=== PATIENT | female | born 1995 | race Caucasian/White ===

== ENCOUNTER → 2019-06-06 07:52 | Outpatient (CLI) | payer BC, SELFPAY ==
--- NOTE | 2019-06-06 15:05 | NEURO ---
NCS and/or EMG Patient Report Ordering Doctor: Pat Flores DATE OF SERVICE: 06/06/19 Kerline Camejo is a 24-year-old female presents for electrodiagnostic testing of the upper limbs. She reports numbness and tingling in both hands. Electrodiagnostic findings: Median motor nerve demonstrates normal distal latency, amplitude and conduction velocity bilaterally. Normal ulnar motor response bilaterally, including conduction across the elbow. Normal median and ulnar F waves. Prolonged right median sensory latency at the wrist is noted. Normal left-sided sensory responses. Normal right ulnar and radial sensory responses. Needle EMG testing demonstrates that all muscles tested in the upper limbs showed no evidence of denervation with normal motor unit action potentials. Electrodiagnostic impression: This is an abnormal study. 1. Electrodiagnostic findings demonstrate right-sided median mononeuropathy. This is consistent with a mild right carpal tunnel syndrome. 2. No electrodiagnostic evidence for ulnar neuropathy. If there are any further questions, please do not hesitate to contact me
== END ==
PROVIDERS: Family Provider Family Medicine; PCP Family Medicine; Referring Provider Family Medicine; Visit Provider Family Medicine
DX: R20.2 Paresthesia of skin (principal)
CPT/HCPCS: 95886; 95913

== ENCOUNTER 2019-08-09 11:19 | Day surgery (SDC) | payer BC, SELFPAY ==
[2019-08-09 11:52] VITALS: BP 118/69; PULSE 80; RESP 15; TEMP 36.6; O2SAT 100; BMI 31.7
[2019-08-09 12:01] LABS: Internal QC Validated? YES +Cl - CLEAR BKGD; Pregnancy, Urine Negative Negative
[2019-08-09] MEDS: Lactated Ringers 1,000 ML 100 ML IV (12:08)
[2019-08-09] MEDS: Cefazolin 2 GM in 0.9% Normal Saline 100 ML IV (12:45)
--- NOTE | 2019-08-09 13:22 | PCM.OPRPT ---
Report of Operation Date of Procedure: 08/09/19 Pre-Operative Diagnosis: Right carpal tunnel syndrome Post-Operative Diagnosis: same Surgery/Procedure Performed:: Right carpal tunnel release Type of Anesthesia:: Ada Blair Anesthesiologist: Shant Tan Estimated Blood Loss (mL): 5 cc - Admit VTE Documentation VTE Present on Admission: No VTE Mechan Device Prophylaxis: SCD's VTE Pharm Prophylaxis ordered?: No Reason prophylaxis not ordered:: Treatment Not Indicated
[2019-08-09 13:23] VITALS: BP 118/69; BP 90/76; PULSE 86; RESP 16; TEMP 36.4; O2SAT 97
[2019-08-09 13:30] VITALS: BP 102/71; BP 118/69; PULSE 91; RESP 16; O2SAT 98
[2019-08-09 13:35] VITALS: BP 112/72; BP 118/69; PULSE 87; RESP 16; O2SAT 98
[2019-08-09 13:41] VITALS: BP 118/69; BP 95/63; PULSE 88; RESP 16; TEMP 36.7; O2SAT 98
[2019-08-09] MEDS: HYDROcodone Bitartrate/Apap 5/325 Tablet PO (14:10)
[2019-08-09 14:14] VITALS: BP 118/69
== END 2019-08-09 14:54 | disposition home or self-care (01) ==
LOC: SDC 11:20 → AC 11:22
PROVIDERS: Anesthesiology; Family Provider Family Medicine; PCP Family Medicine; Referring Provider Orthopaedic Surgery; Visit Provider Orthopaedic Surgery
PROC: (CPT 64721; principal; 2019-08-09 12:45)
DX: G56.01 Carpal tunnel syndrome, right upper limb (principal); Z87.891 Personal history of nicotine dependence
CPT/HCPCS: 64721; 81025; J7120

== ENCOUNTER 2020-12-16 10:54 | Emergency (ER) | payer OTHER, SELFPAY ==
[2020-12-16 10:54] VITALS: BP 111/72; PULSE 87; RESP 18; TEMP 36.3; O2SAT 97; BMI 26.9
--- NOTE | 2020-12-16 11:05 | EDS_ITS ---
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 open contacting her skin, she immediately applied wound care measures with burn gel she was brought to the emergency department she has no significant past history she reports tetanus is up-to-date no other complaints denies PFSH PFSH Home Medications fluoxetine 20 mg PO QHS 12/16/20 [History Last Taken Unknown] Allergy/AdvReac Type Severity Reaction Status Date / Time No Known Allergies Allergy Verified 12/16/20 10:57 Social History Smoking Status: Current some day smoker ROS ROS ED Constitutional Constitutional ED: Reports subjective, sweats and other; Denies chills, fever(s) or weight loss Eyes Eyes: Denies blurry vision or change in vision ENT ENT ED: Denies ear pain Cardiovascular Cardiovascular: Denies chest pain or palpitations Respiratory/Chest Respiratory/Chest: Denies dyspnea Gastrointestinal Gastrointestinal: Denies abdominal pain, nausea or vomiting Genitourinary Genitourinary ED: Denies dysuria or hematuria Musculoskeletal Musculoskeletal: Denies arthralgias or myalgias Integumentary Reports rash; Denies abscess Neurologic Neurologic: Denies weakness Psychiatric Psychiatric: Denies anxiety or depression Endocrine Endocrinology: Denies polydipsia or polyuria Allergic/Immunologic Allergic/Immunologic ED: Denies urticaria EXAM Physical Exam Const Vital Signs: 12/16/20 10:54 Temperature 97.4 F L Temperature Source Temporal Pulse Rate 87 Respiratory Rate 18 Blood Pressure 111/72 Blood Pressure Mean 85 Pulse Ox 97 Oxygen Delivery Method Room Air Positive well developed General Appearance ED: well developed HEENT Reports normocephalic Negative for trauma Eyes EOMs intact bilaterally Neck supple Chest Wall inspection of chest normal Resp normal respiratory effort Cardio regular rate GI non-tender and non-distended Back/Spine Back/Spine Narrative: unremarkable Extremity normal to inspection Extremity Narrative: There is a linear 3 x 6 cm area of burn to the lateral r ight elbow area, elbow has full range of motion there is no signs of blistering neurovascular function normal no other injury or complaints this was a hot oven door that struck her right to the specific area Neuro oriented x3 and CN's II-XII intact bilaterally Sensorium / Orientation: alert Psych mental status grossly normal Skin no rashes or lesions noted MDM MDM MDM Narrative Medical decision making narrative: Discussed burn management with the patient pain management, she does not wish to take narcotic she will be given nonsteroidals wound care here her tetanus is up-to-date she wants to go back to work she will fill out the Worker's Comp. form provide her instructions on wound care and she will follow-up with outpatient providers please note the elbow joint function is completely normal as this injury is lateral Disposition Home Final impression partial-thickness burn to right lateral elbow area Discharge Plan Triage Chief Complaint: Burn ED Provider: Daisy Armstrong Dx/Rx/DC Orders Clinical Impression: Burn Instructions: ED BURN Wound Check [No Infection] Prescriptions: No Action fluoxetine 20 mg Capsule 20 mg PO QHS RF: 0 Primary Care Provider: Pat Flores Referrals: Pat Flores MD [Primary Care Provider] -
[2020-12-16] MEDS: Naproxen 250 MG Tablet 500 MG PO (11:23)
== END 2020-12-16 12:21 | disposition home or self-care (01) ==
PROVIDERS: Emergency Provider Emergency Medicine; PCP Family Medicine
DX: T22.021A Burn of unspecified degree of right elbow, initial encounter (principal); W29.2XXA Contact with other powered household machinery, initial encounter; Y93.89 Activity, other specified; Y99.0 Civilian activity done for income or pay; F17.200 Nicotine dependence, unspecified, uncomplicated; Z79.899 Other long term (current) drug therapy; Y92.238 Other place in hospital as the place of occurrence of the external cause
CPT/HCPCS: 99283

== ENCOUNTER 2021-02-28 14:11 | Emergency (ER) | payer OTHER, SELFPAY ==
[2021-02-28 14:12] VITALS: BP 129/74; PULSE 105; RESP 14; TEMP 36.2; O2SAT 98; BMI 25.0
--- NOTE | 2021-02-28 14:26 | EX.ED.DYSGE1 ---
HPI History of Present Illness Chief Complaint: Rash Informant: patient Narrative Narrative: 25-year-old female presenting to the emergency department with rash. Patient states 2 weeks ago she had poison erika. Her symptoms got better but her significant other works with trees and came home and gave her a hug. She states that yesterday she began to have a rash on her face and neck and subsequently has now spread to torso and legs. No history of diabetes. PFSH PFSH Home Medications fluoxetine 20 mg PO QHS 12/16/20 [History Last Taken Unknown] prednisone See Rx Instructions .ROUTE .COMPLEX #24 tablet 02/28/21 [Rx Last Taken Unknown] Allergy/AdvReac Type Severity Reaction Status Date / Time No Known Allergies Allergy Verified 02/28/21 14:13 Social History (Updated 02/28/21 @ 14:[address] Evin Mercedes, DO) Smoking Status: Current some day smoker substance use type: does not use ROS ROS ED Constitutional Constitutional ED: Denies chills or weight loss Eyes Eyes: Denies change in vision or diplopia ENT ENT ED: Denies ear pain, rhinorrhea or sore throat Cardiovascular Cardiovascular: Denies chest pain, orthopnea, palpitations or racing heartbeat Respiratory/Chest Respiratory/Chest: Denies cough, dyspnea or orthopnea Gastrointestinal Gastrointestinal: Denies abdominal pain, diarrhea, nausea or vomiting Genitourinary Genitourinary ED: Denies dysuria, hematuria or urinary frequency Musculoskeletal Musculoskeletal: Denies arthralgias or myalgias Integumentary Reports rash; Denies abscess Neurologic Neurologic: Denies headache(s) or weakness Psychiatric Psychiatric: Denies anxiety, depression, suicidal ideation or suicidal thoughts Endocrine Endocrinology: Denies polydipsia, polyphagia or polyuria Allergic/Immunologic Allergic/Immunologic ED: Denies mouth swelling, tongue swelling or urticaria EXAM Physical Exam Const Vital Signs: 02/28/21 14:12 Temperature 97.1 F L Temperature Source Temporal Pulse Rate 105 H Respiratory Rate 14 Blood Pressure 129/74 H Blood Pressure Mean 92 Pulse Ox 98 Oxygen Delivery Method Room Air Positive well nourished and well developed General Appearance ED: well developed HEENT Reports normocephalic, head/scalp atraumatic and moist mucous membranes Eyes PERRL and EOMs intact bilaterally Neck no lymphadenopathy, supple and no JVD Resp normal respiratory effort and clear to auscultation bilaterally Cardio regular rate, regular rhythm and no murmurs GI normal to inspection, nondistended, normoactive bowel sounds and non-tender Palpation: soft Back/Spine no CVA tenderness and normal ROM Extremity normal to inspection General Extremety ED: Negative for edema General Extremity: Negative for edema Neuro oriented x3 and CN's II-XII intact bilaterally Sensorium / Orientation: alert Motor Exam: strength 5/5 throughout Psych mental status grossly normal Mood & Affect: Negative for depressed or tearful Skin no wounds Skin Narrative: Patient has rash on face neck torso and legs consistent with rhus dermatitis. MDM MDM MDM Narrative Medical decision making narrative: Patient will be given a dose of Kenalog and started on a 12-day tapering dose of prednisone. Return if worsening or concerns Discharge Plan Triage Chief Complaint: Rash ED Provider: Evin Mercedes Dx/Rx/DC Orders Clinical Impression: Allergic dermatitis due to poison erika Instructions: ED Poison Erika Rash Prescriptions: New prednisone 20 MG tablet See Rx Instructions .ROUTE .COMPLEX Qty: 24 RF: 0 No Action fluoxetine 20 mg Capsule 20 mg PO QHS RF: 0 Primary Care Provider: Pat Flores Referrals: Pat Flores MD [Primary Care Provider] - As Needed Disposition Disposition: Home, Self Care
[2021-02-28] MEDS: Triamcinolone Acetonide 40 MG/ML Vial IM (14:38)
[2021-02-28 14:43] VITALS: PULSE 98; RESP 16; O2SAT 98
== END 2021-02-28 14:55 | disposition home or self-care (01) ==
LOC: ED 14:30
PROVIDERS: Emergency Provider Emergency Medicine; PCP Family Medicine
DX: L23.7 Allergic contact dermatitis due to plants, except food (principal); F17.200 Nicotine dependence, unspecified, uncomplicated; Z79.52 Long term (current) use of systemic steroids
CPT/HCPCS: 96372; 99282

== ENCOUNTER → 2021-03-12 10:19 | Outpatient (CLI) | payer OTHER, SELFPAY ==
[2021-02-28 14:12] VITALS: BMI 25.0
== END ==
PROVIDERS: PCP Family Medicine; Visit Provider Nurse Practitioner Family
DX: N39.0 Urinary tract infection, site not specified (principal)
CPT/HCPCS: 87086; 87088; 87186

== ENCOUNTER → 2021-05-15 12:09 | Outpatient (CLI) | payer OTHER, SELFPAY ==
[2021-05-19 09:08] LABS: Chlamydia By Nucleic Acid AMP Negative (Negative)
[2021-05-19 17:03] LABS: Gonococcus By Nucleic Acid AMP Negative (Negative)
[2021-05-19 17:04] LABS: HPV Reflexed? NOT INDICATED
== END ==
PROVIDERS: PCP Family Medicine; Referring Provider Family Medicine; Visit Provider Family Medicine
DX: Z12.4 Encounter for screening for malignant neoplasm of cervix (principal)
CPT/HCPCS: 87491; 87591; 88142

== ENCOUNTER → 2022-01-19 | Outpatient (CLI) | payer OTHER, SELFPAY ==
--- NOTE | 2022-01-19 11:46 | RAD_ITS ---
STUDY: X-RAY - SKULL REASON FOR EXAM: Female, 26 years old. Craniotabes. TECHNIQUE: 5 view(s) of the skull were obtained. COMPARISON: None. FINDINGS: There is no demonstrated soft tissue swelling. Normal osseous calvarium. Normal visualized facial bones. Normal visualized paranasal sinuses. RAD/Skull less than 4 Views IMPRESSION: Normal x-ray examination of the skull. Electronically Signed: Barry English MD at 9:46 EDT ,
== END | disposition home or self-care (01) ==
LOC: MTRAD 11:45
PROVIDERS: PCP Family Medicine; Referring Provider Family Medicine; Visit Provider Family Medicine
DX: M83.8 Other adult osteomalacia (principal)
CPT/HCPCS: 70250

== ENCOUNTER → 2023-03-04 | Outpatient (CLI) | payer OTHER, SELFPAY ==
[2023-03-04 12:08] LABS: AST(SGOT) 17 U/L (15-37); Alanine Aminotransfer ALT/SGPT 21 U/L (13-56); Cholesterol 179 mg/dL (200); High Density Lipoprotein 53 mg/dL; Triglycerides 46 mg/dL; Very Low Density Lipoprotein 9 mg/dL (5-40)
== END | disposition home or self-care (01) ==
LOC: LAB 10:21
PROVIDERS: PCP Family Medicine; Referring Provider Family Medicine; Visit Provider Family Medicine
DX: E78.00 Pure hypercholesterolemia, unspecified (principal)
CPT/HCPCS: 36415; 80061; 84450; 84460

== ENCOUNTER → 2023-12-22 | Outpatient (CLI) | payer OTHER, SELFPAY ==
[2023-12-22 15:28] LABS: Absolute Lymphocyte Count 0.64 X10^3/uL (0.83-4.51); Absolute Neutrophil Count 15.7 X10^3/uL (2.0-7.7); Basophil# 0.16 X10^3/uL; Basophil% 0.9 % (0-1); Eosinophil# 0.01 X10^3/uL; Eosinophils% 0.1 % (0-5); Hematocrit 36.3 % (37-47); Hemoglobin 11.9 g/dL (12.0-15.0); Lymphocyte # 0.64 X10^3/ul (0.83-4.51); Lymphocyte % 3.6 % (19-41); Mean Corp Hgb Conc 32.8 g/dL (32-36); Mean Corpuscular Hgb 30.4 pg (27.0-32.0); Mean Corpuscular Volume 92.6 fL (81-99); Mean Platelet Vol. 10.3 fl (6.2-12.0); Monocyte# 1.23 X10^3/uL; Monocyte% 6.8 % (0-10); NRBC Flagged by Analyzer 0 % (0-5); Neutrophil # 15.74 X10^3/uL (2.7-7.7); Neutrophil % 87.5 % (47-70); POSITIVE MORPHOLOGY YES; Platelet Count 202 K/mm3 (150-450); Red Blood Count 3.92 M/mm3 (4.2-5.4)
[2023-12-22 15:40] LABS: Differential Indicated SCAN CRITERIA MET
[2023-12-22 16:07] LABS: Anion Gap 6 (5-15); BUN 13 mg/dL (7-18); BUN/Creat Ratio 14.7 RATIO (10-20); Calcium,Total 9.3 mg/dL (8.5-10.1); Chloride 101 mmol/L (98-107); Creatinine, Serum 0.89 mg/dL (0.55-1.02); EST Glomerular Filtration Rate 80 mL/min (>60); Est Glom Filt Rate - Afr Amer 97 mL/min (>60); Glucose 95 mg/dL (74-106); Potassium 4.2 mmol/L (3.5-5.1); Sodium Level 133 mmol/L (136-145)
[2023-12-22 16:14] LABS: Anisocytosis RARE; Macrocytosis RARE; Platelet Estimate ADEQUATE (ADEQ); Red Cell Morphology N CHROM NORMAL (NORM C&C)
== END | disposition home or self-care (01) ==
LOC: MFPLAB 12:21
PROVIDERS: PCP Family Medicine; Visit Provider Family Medicine
DX: R53.83 Other fatigue (principal)
CPT/HCPCS: 36415; 80048; 85025

== ENCOUNTER 2024-10-05 16:21 | Outpatient (CLI) | payer BC, SELFPAY ==
[2024-10-05 18:28] LABS: Estradiol 27.5 pg/mL
[2024-10-05 18:29] LABS: ALB/GLOB Ratio 1.3 RATIO (0.9-2.4); AST(SGOT) 23 U/L (<=31); Alanine Aminotransfer ALT/SGPT 16 U/L (<=34); Albumin, Serum 4.4 g/dL (3.5-5.0); Alkaline Phosphatase 70 U/L (35-104); Anion Gap 12 (5-15); BUN 15 mg/dL (4-19); BUN/Creat Ratio 24.3 RATIO (10-20); Calcium,Total 9.5 mg/dL (7.6-11.0); Carbon Dioxide 24.4 mmol/L (21.0-32.0); Chloride 103 mmol/L (98-108); EST Glomerular Filtration Rate 124 (>60); Globulin 3.4 g/dL (2.2-4.2); Glucose 75 mg/dL (70-99); Potassium 3.9 mmol/L (3.3-5.1); Protein, Total 7.8 g/dL (5.9-8.4); Sodium Level 139 mmol/L (133-145); Total Bilirubin 0.21 mg/dL (0.00-1.30)
[2024-10-05 18:36] LABS: Internal QC Validated? YES +Cl - CLEAR BKGD; Pregnancy, Serum, hCG Quali. NEGATIVE Negative
[2024-10-07 09:08] LABS: PROGESTERONE 0.2 ng/mL (.)
[2024-10-07 14:08] LABS: Adrenocorticotropic Hormone 14.5 pg/mL (7.2-63.3)
== END 2024-10-05 23:59 | disposition home or self-care (01) ==
LOC: MFPLAB 16:25
PROVIDERS: PCP Family Medicine; Referring Provider Family Medicine; Visit Provider Family Medicine
DX: Z00.00 Encounter for general adult medical examination without abnormal findings (principal)
CPT/HCPCS: 36415; 80053; 82024; 82627; 82670; 84144; 84443; 84703; 82626

== ENCOUNTER → 2024-10-05 | Outpatient (CLI) | payer BC, SELFPAY ==
[2024-10-15 12:08] LABS: Chlamydia By Nucleic Acid AMP Negative (Negative); Gonococcus By Nucleic Acid AMP Negative (Negative); Trich. Vag By Nucleic Acid AMP Negative (Negative)
[2024-10-16 08:48] LABS: HPV Reflexed? NOT INDICATED
== END | disposition home or self-care (01) ==
PROVIDERS: PCP Family Medicine; Referring Provider Family Medicine; Visit Provider Family Medicine
DX: Z12.4 Encounter for screening for malignant neoplasm of cervix (principal)
CPT/HCPCS: 87491; 87591; 88175; G0145

== ENCOUNTER → 2024-12-05 | Outpatient (CLI) | payer OTHER, SELFPAY ==
--- NOTE | 2024-12-05 14:36 | NEURO ---
NCS and/or EMG Patient Report Ordering Doctor: Pat Flores DATE OF SERVICE: 12/05/24 Kerline presents for electrodiagnostic testing of the left upper limb. She reports numbness and tingling in the left hand. Electrodiagnostic findings: Left median motor nerve demonstrates normal distal latency, amplitude and conduction velocity. Left ulnar motor response is within normal limits. Normal median and ulnar F?waves. Prolonged left median sensory latency at the wrist with reduced conduction velocity. Normal ulnar and radial sensory responses. Needle EMG testing was performed in the left upper limb. All muscles tested showed no evidence of denervation with normal motor unit action potentials. Electrodiagnostic impression: This is an abnormal study. 1. Electrodiagnostic findings suggestive of left-sided median mononeuropathy. This consistent with a mild left carpal tunnel syndrome Multi Select Codes Neurology Neurology Interp Codes: 00255-35 Musc test done w/n test comp (interp) and 03503-30 Nrv cndj test 7-8 studies (interp)
== END | disposition home or self-care (01) ==
PROVIDERS: PCP Family Medicine; Referring Provider Family Medicine; Visit Provider Family Medicine
DX: G56.02 Carpal tunnel syndrome, left upper limb (principal)
CPT/HCPCS: 95886; 95910

== ENCOUNTER → 2025-05-03 | Outpatient (CLI) | payer OTHER, SELFPAY ==
--- NOTE | 2025-05-03 14:05 | US_ITS ---
PROCEDURE: PELVIC W/ TRANSVAGINAL REASON FOR EXAM: IRREGULAR MENSES TECHNIQUE: Procedure Code: [id number] Modality: US Procedure: PELVIC W/ TRANSVAGINAL COMPARISON: None FINDINGS: LMP: March 31, 2025. Measurements: Uterus: 6.4 cm x 3.4 cm x 2.9 cm with a volume of 33.3 mL Endometrial Thickness: 8 mm. It is hyperechoic. Right Ovary: 2.2 cm x 2.8 cm x 1.9 cm with a volume of 6.3 mL. Left Ovary: 3.4 cm x 2.6 cm x 3.3 cm with a volume of 15.1 mL. TRANSABDOMINAL: Uterus: Normal size, myometrial echotexture, and contour. Endometrium: Unremarkable. Right ovary: Normal size and echotexture. Left ovary: Dominant follicle is seen within the left ovary measuring 2 cm x 1.9 cm 1.3 cm. Other: No large pelvic mass identified. Transvaginal sonography was performed to better visualize the endometrium. TRANSVAGINAL: Uterus: Anteverted. Normal contour and myometrial echotexture. Endometrium: Normal echotexture. Right ovary: Normal size and echotexture. Left ovary: Dominant follicle is seen. It measures 2 cm x 1.9 cm 1.3 cm. Other adnexal findings: None. Cul-de-sac: No free intraperitoneal fluid identified. Tenderness: No tenderness US/Pelvic w/ Transvaginal IMPRESSION: Dominant follicle in the left ovary measuring 2 cm x 1.9 cm 1.3 cm. Reading Location: [facility]
== END | disposition home or self-care (01) ==
LOC: US 13:51
PROVIDERS: PCP Family Medicine; Referring Provider Nurse Practitioner Family; Visit Provider Nurse Practitioner Family
DX: N92.6 Irregular menstruation, unspecified (principal)
CPT/HCPCS: 76830; 76856